=== PATIENT | female | born 1970 | race Hispanic/Latino ===

== ENCOUNTER 2018-09-07 03:38 | Emergency (ER) | payer MEDICAID ==
[2018-09-07 04:39] LABS: ALB/GLOB RATIO 1.1 (1.0-2.1); ALBUMIN 4.3 g/dL (3.5-5.0); ALT/SGPT 64 U/L (9-52); AST/SGOT 97 U/L (14-36); BLOOD UREA NITROGEN 28 mg/dl (7-17); CALCIUM 9.3 mg/dL (8.4-10.2); GFR NON-AFRICAN AMERICAN 60
--- NOTE | 2018-09-07 04:54 | ED PDOC ---
HPI: Psych/Substance Abuse Time Seen by Provider: 09/07/18 03:50 Chief Complaint (Nursing): Substance Abuse Chief Complaint (Provider): Substance Abuse History Per: Patient, EMS History/Exam Limitations: no limitations Modifying Factor(s): Crack Additional Complaint(s): 48 y/o female was brought in by EMS for possible substance abuse as [place], [place]. Patient states she has been smoking "crack" for the past x4 days. Of note patient reports yesterday she was sen at "[facility]" in [facility] and was treated for drug overdose. Patient offers no complaints at this time and denies chest pain or shortness of breath. Past Medical History Reviewed: Historical Data, Nursing Documentation, Vital Signs Vital Signs: Last Vital Signs Temp 96.8 F L 09/07/18 03:51 Pulse 115 H 09/07/18 03:51 Resp 26 H 09/07/18 03:51 BP 97/52 L 09/07/18 03:51 Pulse Ox 97 09/07/18 03:51 - Medical History PMH: No Chronic Diseases - Surgical History Surgical History: No Surg Hx - Family History Family History: States: No Known Family Hx - Social History Drugs: Cocaine - Allergies Allergies/Adverse Reactions: Allergies Allergy/AdvReac Type Severity Reaction Status Date / Time acetaminophen [From Percocet] Allergy RASH Verified 09/07/18 03:51 oxycodone [From Percocet] Allergy RASH Verified 09/07/18 03:51 Review of Systems ROS Statement: Except As Marked, All Systems Reviewed And Found Negative Cardiovascular: Negative for: Chest Pain Respiratory: Negative for: Shortness of Breath Psych: Positive for: Withdrawal Physical Exam - Reviewed Nursing Documentation Reviewed: Yes Vital Signs Reviewed: Yes - Physical Exam Appears: Positive for: No Acute Distress (actively scratching herself) Head Exam: Positive for: ATRAUMATIC, NORMAL INSPECTION, NORMOCEPHALIC Eye Exam: Positive for: EOMI, Normal appearance, PERRL ENT: Positive for: Normal ENT Inspection Neck: Positive for: Normal, Painless ROM Cardiovascular/Chest: Positive for: Regular Rate, Rhythm, Tachycardia. Negative for: Murmur Respiratory: Positive for: Normal Breath Sounds. Negative for: Respiratory Distress Gastrointestinal/Abdominal: Positive for: Normal Exam, Soft. Negative for: Tenderness Neurological/Psych: Positive for: Awake, Alert, Normal Tone, Mood/Affect (very anxious but cooperative) - Laboratory Results Result Diagrams: 09/07/18 04:15 09/07/18 04:15 Lab Results: Total Bilirubin 0.2 mg/dl (0.2-1.3) 09/07/18 04:15 AST 97 U/L (14-36) H 09/07/18 04:15 ALT 64 U/L (9-52) H 09/07/18 04:15 Alkaline Phosphatase 79 U/L (38-126) 09/07/18 04:15 Total Protein 8.3 G/DL (6.3-8.2) H 09/07/18 04:15 Albumin 4.3 g/dL (3.5-5.0) 09/07/18 04:15 Globulin 4.0 gm/dL (2.2-3.9) H 09/07/18 04:15 Albumin/Globulin Ratio 1.1 (1.0-2.1) 09/07/18 04:15 - ECG ECG: Positive for: Interpreted By Me (and Dr. Hua) ECG Rhythm: Positive for: Sinus Rhythm. Negative for: Normal QRS (prolonged) Rate: 87 O2 Sat by Pulse Oximetry: 97 (RA) Medical Decision Making Medical Decision Making: Time: 03:57 Initial Impression: Initial Plan: * Labs * EKG * Ativan 04:40 Multiple attempts were made to obtain EKG and calm patient down without success. Unable to obtain EKG as patient continuously scratches herself causing excoriations on her body. Patient will be given Haldol to relieve her of her agitation. Haldol 5mg IM ordered. 0515 EKG shows prolonged QT Results d/w Dr. Hua who recommends poison control consult. Case d/w Julio Cesar, poison control, who agrees with care and recommends repeat EKG in 2 hours and continuous cardiac monitoring but no medical intervention at this time. ------- Scribe Attestation: Documented by Sushant Freitas, acting as a scribe Tin Marie PA-C Provider Scribe Attestation: All medical record entries made by the Scribe were at my direction and personally dictated by me. I have reviewed the chart and agree that the record accurately reflects my personal performance of the history, physical exam, medical decision making, and the department course for this patient. I have also personally directed, reviewed, and agree with the discharge instructions and disposition Disposition - Clinical Impression Clinical Impression: Polysubstance abuse, Prolonged Q-T interval on ECG - Patient ED Disposition Is Patient to be Admitted: Transfer of Care (Dr. Hua continued care at the end of my shift pending repeat EKG and sobriety) - Disposition Disposition Time: 06:20 Condition: FAIR Forms: Table8 (Armenian)
[2018-09-07 05:00] LABS: BASO % 0.4 % (0.0-2.0); EOS # 0.2 K/uL (0.0-0.7); EOS % 1.5 % (0.0-4.0); HEMOGLOBIN 8.6 g/dL (12.0-16.0); LYMPH # 3.4 K/uL (1.0-4.3); LYMPH % 28.3 % (20.0-40.0); MEAN CORPUSCULAR HEMOGLOBIN 23.3 pg (27.0-31.0); MEAN CORPUSCULAR HGB CONC 30.7 g/dL (33.0-37.0); MEAN PLATELET VOLUME 8.6 fl (7.2-11.7); MONO # 1.4 K/uL (0.0-0.8); NEUT # 6.9 K/uL (1.8-7.0); NEUT % 57.8 % (50.0-75.0); RBC 3.68 Mil/uL (3.80-5.20); RED CELL DISTRIBUTION WIDTH 16.3 % (11.5-14.5); WHITE BLOOD COUNT 11.9 K/uL (4.8-10.8)
--- NOTE | 2018-09-07 07:16 | ED PDOC ---
- Laboratory Results Result Diagrams: 09/07/18 04:15 09/07/18 04:15 Lab Results: Troponin I 0.0310 ng/mL (0.00-0.120) 09/07/18 04:15 Total Bilirubin 0.2 mg/dl (0.2-1.3) 09/07/18 04:15 AST 97 U/L (14-36) H 09/07/18 04:15 ALT 64 U/L (9-52) H 09/07/18 04:15 Alkaline Phosphatase 79 U/L (38-126) 09/07/18 04:15 Total Protein 8.3 G/DL (6.3-8.2) H 09/07/18 04:15 Albumin 4.3 g/dL (3.5-5.0) 09/07/18 04:15 Globulin 4.0 gm/dL (2.2-3.9) H 09/07/18 04:15 Albumin/Globulin Ratio 1.1 (1.0-2.1) 09/07/18 04:15 - ECG O2 Sat by Pulse Oximetry: 97 (RA) Pulse Ox Interpretation: Normal Medical Decision Making Medical Decision Makin:00 Patient was signed out to me from Dr. Kody Hua at this time, pending repeat EKG and reassessment. At sign out, I reassessed patient at bedside, who is resting comfortably in stretcher. Vital signs stable. 12:00 Patient is easily arousable and alert to verbal stimuli. 13:18 Patient is not alert. Mental status has not improved significantly. Will obtain CT Head. CT Head results: Accession No. 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 HISTORY: AMS COMPARISON: None available. TECHNIQUE: Axial computed tomography images were obtained through the head/brain without intravenous contrast. Radiation dose: Total exam DLP = 633.0 mGy-cm. This CT exam was performed using one or more of the following dose reduction techniques: Automated exposure control, adjustment of the mA and/or kV according to patient size, and/or use of iterative reconstruction technique. FINDINGS: HEMORRHAGE: No intracranial hemorrhage. BRAIN: Normal aguilar-white matter differentiation and density are appreciated throughout the cerebrum and cerebellum with the brainstem appearing unremarkable as well. There is no mass effect. There is no suspicious extra-axial fluid collection and the midline brain anatomy appears diffusely unremarkable. VENTRICLES: Unremarkable. No hydrocephalus. CALVARIUM: Unremarkable. PARANASAL SINUSES: Unremarkable as visualized. No significant inflammatory changes. MASTOID AIR CELLS: Unremarkable as visualized. No inflammatory changes. OTHER FINDINGS: None. IMPRESSION: Normal CT of the Head. 15:45 Upon provider reevaluation patient resting comfortably, AAOx3, is medically stable, and requires no further treatment in the ED at this time. Patient will be discharged home. Counseling was provided and all questions were answered regarding diagnosis and need for follow up There is agreement to discharge plan. Return if symptoms persist or worsen. Scribe Attestation: Documented by Dolores Langston, acting as a scribe for Ishmael Root MD. Provider Scribe Attestation: All medical record entries made by the Scribe were at my direction and personally dictated by me. I have reviewed the chart and agree that the record accurately reflects my personal performance of the history, physical exam, medical decision making, and the department course for this patient. I have also personally directed, reviewed, and agree with the discharge instructions and disposition. Disposition Counseled Patient/Family Regarding: Studies Performed, Diagnosis, Need For Followup - Clinical Impression Clinical Impression: Polysubstance abuse, Prolonged Q-T interval on ECG - POA Present On Arrival: None - Disposition Referrals: [facility] [Outside] Disposition: Routine/Home Disposition Time: 15:45 Condition: IMPROVED Instructions: Polysubstance Abuse (DC)
--- NOTE | 2018-09-07 09:02 | CARD ---
APPROVED REPORT Date of service: 09/07/2018 EKG Measurement Heart [id number] <Conclusion> Normal sinus rhythm Left ventricular hypertrophy Prolonged QT Abnormal ECG
[2018-09-07 12:38] VITALS: O2SAT 97
[2018-09-07 13:01] VITALS: RESP 18
--- NOTE | 2018-09-07 14:55 | CT ---
Date of service: 09/07/2018 PROCEDURE: CT HEAD WITHOUT CONTRAST. HISTORY: AMS COMPARISON: None available. TECHNIQUE: Axial computed tomography images were obtained through the head/brain without intravenous contrast. Radiation dose: Total exam DLP = 633.0 mGy-cm. This CT exam was performed using one or more of the following dose reduction techniques: Automated exposure control, adjustment of the mA and/or kV according to patient size, and/or use of iterative reconstruction technique. FINDINGS: HEMORRHAGE: No intracranial hemorrhage. BRAIN: Normal aguilar-white matter differentiation and density are appreciated throughout the cerebrum and cerebellum with the brainstem appearing unremarkable as well. There is no mass effect. There is no suspicious extra-axial fluid collection and the midline brain anatomy appears diffusely unremarkable. VENTRICLES: Unremarkable. No hydrocephalus. CALVARIUM: Unremarkable. PARANASAL SINUSES: Unremarkable as visualized. No significant inflammatory changes. MASTOID AIR CELLS: Unremarkable as visualized. No inflammatory changes. OTHER FINDINGS: None. IMPRESSION: Normal CT of the Head.
--- NOTE | 2018-09-07 17:27 | CARD ---
APPROVED REPORT Date of service: 09/07/2018 EKG Measurement Heart [id number] <Conclusion> Normal sinus rhythm Minimal voltage criteria for LVH, may be normal variant Prolonged QT Abnormal ECG
[2018-09-07] MEDS: Ammonia 2% Inhalant INH ONE (21:31)
[2018-09-07 21:39] VITALS: BP 102/63; PULSE 83; TEMP 98.1
== END 2018-09-07 16:25 | disposition home or self-care (01) ==
LOC: H.ER 03:38
DX: F19.10 Other psychoactive substance abuse, uncomplicated (principal); R94.31 Abnormal electrocardiogram [ECG] [EKG]
CPT/HCPCS: 70450; 80053; 80320; 83735; 84484; 84703; 85025; 93005; 96372; 99285; J1630; J2060